=== PATIENT | male | born 1980 | race Caucasian/White ===

== ENCOUNTER 2017-07-22 00:19 | Emergency (ER) | payer OTHER ==
[2017-07-22] MEDS: KETOROLAC 30 MG INJ IM (01:03)
[2017-07-22 02:40] LABS: URINE BLOOD (Dip) POC Negative (NEGATIVE); URINE GLUCOSE (Dip) POC Negative (NEGATIVE); URINE KETONES (Dip) POC Negative (NEGATIVE); URINE LEUKOCYTE EST (Dip) POC Negative (NEGATIVE); URINE NITRITE (Dip) POC Negative (NEGATIVE); URINE TOTAL PROTEIN POC 1+ (NEGATIVE)
[2017-07-22 02:40] LABS: URINE PH (Dip) POC 5.5 (5.0-8.5)
== END 2017-07-22 02:46 | disposition home or self-care (01) ==
LOC: FTE 00:19
DX: R36.1 Hematospermia (principal)
CPT/HCPCS: 76870; 81003; 96372; 99285-25

== ENCOUNTER 2017-08-06 13:27 | Emergency (ER) | payer OTHER ==
[2017-08-06] MEDS: morphine 10 MG INJ IV (15:01)
[2017-08-06] MEDS: ONDANSETRON 4 MG INJ IV (15:01)
[2017-08-06] MEDS: KETOROLAC 15 MG INJ IV (15:32)
== END 2017-08-06 16:31 | disposition home or self-care (01) ==
LOC: FTE 13:27
DX: M54.5 Low back pain (principal); F17.210 Nicotine dependence, cigarettes, uncomplicated
CPT/HCPCS: 72131; 96374; 96375; 99285-25

== ENCOUNTER 2017-08-19 17:37 | Emergency (ER) | payer MEDICAID, OTHER | END 2017-08-19 20:47 | disposition home or self-care (01) | LOC: FTE 17:37 | DX: S32.2XXA Fracture of coccyx, initial encounter for closed fracture (principal); F17.210 Nicotine dependence, cigarettes, uncomplicated; W10.9XXA Fall (on) (from) unspecified stairs and steps, initial encounter; Y92.9 Unspecified place or not applicable | CPT/HCPCS: 72100; 72220; 99283-25 ==

== ENCOUNTER 2017-08-22 16:28 | Emergency (ER) | payer MEDICAID | END 2017-08-22 16:52 | disposition home or self-care (01) | LOC: E/R 16:28 | DX: Z76.0 Encounter for issue of repeat prescription (principal); F17.210 Nicotine dependence, cigarettes, uncomplicated | CPT/HCPCS: 99281; Z7502 ==

== ENCOUNTER 2018-02-13 17:05 | Emergency (ER) | payer MEDICAID ==
[2018-02-13] MEDS: HYDROCODONE/APAP (5/325) TAB PO (18:03)
== END 2018-02-13 19:20 | disposition home or self-care (01) ==
LOC: FTE 17:05
DX: M54.5 Low back pain (principal); M79.672 Pain in left foot; I25.2 Old myocardial infarction; Z87.891 Personal history of nicotine dependence
CPT/HCPCS: 72100; 73130-LT; 73630-LT; 99284-25

== ENCOUNTER 2018-08-27 18:52 | Emergency (ER) | payer SELFPAY, MEDICAID | END 2018-08-27 21:50 | disposition left against medical advice (07) | LOC: FTE 18:52 | DX: Z53.21 Procedure and treatment not carried out due to patient leaving prior to being seen by health care provider (principal) ==